=== PATIENT | male | born 1960 | race American Indian/Alaskan Native ===

== ENCOUNTER 2017-02-11 08:10 | Emergency (ER) | payer OTHER ==
--- NOTE | 2017-02-11 12:05 | Emergency Department Report ---
Upper Respiratory HPI - HPI Chief Complaint: Upper Respiratory Infection Stated Complaint: FLU SYMPTOMS Time Seen by Provider: 02/11/17 11:58 Duration: 3 Days URI Symptoms: Rhinorrhea: Yes, Sore Throat: Yes, Ear Pain: Yes, Cough: Yes, Shortness of Breath: No, Sick Contacts: Yes, Unable to Take Fluids: No, Urine Output Abnormal: No, Listless Behavior: No - Home Meds and Allergies Home Medications: Previous Rx's Medication Instructions Recorded Last Taken Type Fluticasone [Flonase] 1 spray NS QDAY #1 bottle 02/11/17 Unknown Rx Ibuprofen [Motrin 800 MG tab] 800 mg PO Q8HR PRN #30 tablet 02/11/17 Unknown Rx Loratadine 10 mg PO DAILY #30 tablet 02/11/17 Unknown Rx Ondansetron [Zofran Odt] 4 mg PO QID PRN #5 tab.rapdis 02/11/17 Unknown Rx P-Ephed HCl/Codeine/Guaifen 5 ml PO QID PRN #120 ml 02/11/17 Unknown Rx [Cheratussin DAC 30-10-100 mg/5 ml] Allergies/Adverse Reactions: Allergies Allergy/AdvReac Type Severity Reaction Status Date / Time No Known Allergies Allergy Unverified 02/11/17 08:20 ED Review of Systems ROS: Stated complaint: FLU SYMPTOMS Other details as noted in HPI Constitutional: denies: chills, fever Eyes: denies: eye pain, eye discharge, vision change ENT: ear pain, throat pain, congestion Respiratory: cough. denies: orthopnea, shortness of breath, wheezing Cardiovascular: as per HPI. denies: chest pain, palpitations, dyspnea on exertion, orthopnea, edema, syncope, paroxysmal nocturnal dyspnea Endocrine: no symptoms reported Gastrointestinal: nausea, vomiting. denies: abdominal pain, diarrhea, constipation, hematemesis, melena, hematochezia Genitourinary: denies: urgency, dysuria, frequency, hematuria, discharge Musculoskeletal: denies: back pain, joint swelling, arthralgia Skin: denies: rash, lesions Neurological: denies: headache, weakness, paresthesias Psychiatric: as per HPI Hematological/Lymphatic: denies: easy bleeding, easy bruising ED Past Medical Hx - Past Medical History Previous Medical History?: No - Surgical History Past Surgical History?: No - Social History Smoking Status: Current Every Day Smoker Substance Use Type: None - Medications Home Medications: Home Medications Medication Instructions Recorded Confirmed Last Taken Type Fluticasone [Flonase] 1 spray NS QDAY #1 bottle 02/11/17 Unknown Rx Ibuprofen [Motrin 800 MG tab] 800 mg PO Q8HR PRN #30 tablet 02/11/17 Unknown Rx Loratadine 10 mg PO DAILY #30 tablet 02/11/17 Unknown Rx Ondansetron [Zofran Odt] 4 mg PO QID PRN #5 tab.rapdis 02/11/17 Unknown Rx P-Ephed HCl/Codeine/Guaifen 5 ml PO QID PRN #120 ml 02/11/17 Unknown Rx [Cheratussin DAC 30-10-100 mg/5 ml] ED Bronchiolitis Physical Exam - Exam General: Vital signs noted. No distress. Alert and acting appropriately. HEENT: Yes Pharyngeal Erythema, Yes Rhinorrhea, No Conjuctival Injection, No Dry Mucous Membranes Ear: Both TM Erythema, Neither TM Bulge, Neither EAC Discharge Neck: No Adenopathy, No Rigidity Lungs: Yes Clear Lung Sounds, Yes Good Air Exchange, Yes Cough, Yes Nasal Flaring, No Wheezes, No Stridor, No Use of Accessory Muscles Heart: Yes Regular, No Murmur Abdomen: Yes Normal Bowel Sounds, No Tenderness, No Peritoneal Signs Skin: No Rash, No Eczema Neurologic: Alert and oriented, no deficits. Musculoskeletal: Unremarkable. ED Bronchiolitis Tests - Testing Other Tests: pt refused cxr or rapid strep advises he has bee her too long ED Physical Exam - General Limitations: No Limitations General appearance: alert, in no apparent distress - Head Head exam: Present: atraumatic - Eye Eye exam: Present: normal appearance, PERRL, EOMI Pupils: Present: normal accommodation - Expanded ENT Exam Expanded TM/Canal exam: Erythema: Right TM, Left TM Mouth exam: Present: normal external inspection. Absent: trismus Teeth exam: Present: normal inspection Throat exam: Positive: tonsillar erythema, tonsillomegaly. Negative: tonsillar exudate, R peritonsillar mass, L peritonsillar mass - Neck Neck exam: Present: normal inspection, full ROM. Absent: tenderness, lymphadenopathy, thyromegaly - Respiratory Respiratory exam: Present: normal lung sounds bilaterally, chest wall tenderness. Absent: respiratory distress, wheezes, stridor, accessory muscle use, decreased breath sounds, prolonged expiratory - Cardiovascular Cardiovascular Exam: Present: regular rate, normal rhythm. Absent: systolic murmur, diastolic murmur, rubs, gallop - GI/Abdominal GI/Abdominal exam: Present: soft, normal bowel sounds - Rectal Rectal exam: Present: deferred - Extremities Exam Extremities exam: Present: normal inspection - Back Exam Back exam: Present: normal inspection. Absent: CVA tenderness (R), CVA tenderness (L), muscle spasm, paraspinal tenderness, vertebral tenderness, rash noted - Neurological Exam Neurological exam: Present: alert, oriented X3, CN II-XII intact, normal gait, reflexes normal - Psychiatric Psychiatric exam: Present: normal affect, normal mood - Skin Skin exam: Present: warm, dry, intact, normal color. Absent: rash ED Course Vital Signs 02/11/17 08:17 Temperature 97.3 F L Pulse Rate 77 Respiratory 18 Rate Blood Pressure 130/94 O2 Sat by Pulse 100 Oximetry ED Medical Decision Making - Medical Decision Making pt presents for uri symptoms including post nasal drip , head congestion productive cough with intermittent n/v x 3, noc fever, has sick house contact with bronchitis, pt denie n/v tolerated lunch without n/v pt refuse cx or rapid strep, exam: tm erythema bilat , nose: bogy erythema clear post nasal drip pharynx: erythema no exudate no lesions uvula midline no swelling no stridor airway is patent, lungs clear bilat all lobes no wheezing, abs: bs x 4 qds soft nontender no bruit no hernia no rebound no signs will treat for uri, bronchitis pt will follow up with [place] primary care doctor on tuesday as scheduled pt verablized agreement and understanding with discharge plan. Critical care attestation.: If time is entered above; I have spent that time in minutes in the direct care of this critically ill patient, excluding procedure time. ED Disposition Clinical Impression: Bronchitis URI (upper respiratory infection) Qualifiers: URI type: acute nasopharyngitis (common cold) Qualified Code(s): J00 - Acute nasopharyngitis [common cold] Disposition: TO HOME OR SELFCARE Is pt being admited?: No Does the pt Need Aspirin: No Condition: Good Instructions: Chronic Bronchitis (ED) Prescriptions: Fluticasone [Flonase] 1 spray NS QDAY #1 bottle Ibuprofen [Motrin 800 MG tab] 800 mg PO Q8HR PRN #30 tablet PRN Reason: Pain Loratadine 10 mg PO DAILY #30 tablet Ondansetron [Zofran Odt] 4 mg PO QID PRN #5 tab.rapdis PRN Reason: Nausea And Vomiting P-Ephed HCl/Codeine/Guaifen [Cheratussin DAC 30-10-100 mg/5 ml] 5 ml PO QID PRN #120 ml PRN Reason: Cough Referrals: PRIMARY CARE,MD [Primary Care Provider] - 3-5 Days Forms: Work/School Release Form(ED) Time of Disposition: 12:14
[2017-02-11 13:25] VITALS: BP 125/75
== END 2017-02-11 12:15 | disposition home or self-care (01) ==
LOC: ED 08:10
DX: J40 Bronchitis, not specified as acute or chronic (principal); J00 Acute nasopharyngitis [common cold]; F17.200 Nicotine dependence, unspecified, uncomplicated
CPT/HCPCS: 99282